=== PATIENT | female | born 1960 | race Caucasian/White ===

== ENCOUNTER 2022-08-27 17:21 | Outpatient (CLI) | payer OTHER, SELFPAY ==
[2022-08-27 17:50] LABS: Basophils Percent Auto 0.1 % (0.2-1.2); Eosinophils Absolute Auto 0.1 K/mm3 (0-0.3); Eosinophils Percent Auto 0.4 % (0-4.4); Hematocrit 35.8 % (37.0-47.0); Hemoglobin 11.8 g/dL (12.0-15.0); Immature Granulocyte Absolute 0.17 K/mm3 (0.00-0.031); Immature Granulocyte Percent A 0.9 % (0-0.5); Lymphocytes Absolute Auto 0.52 K/mm3 (0.9-3.2); Lymphocytes Percent Auto 2.9 % (18.3-44.2); Mean Corpuscular Hemoglobin 29.1 pg (26-34); Mean Corpuscular Volume 88.2 fl (80-100); Mean Platelet Volume 8.8 fl (7.4-10.4); Monocytes Absolute Auto 1.4 K/mm3 (0.1-0.6); Monocytes Percent Auto 7.7 % (2.6-8.5); Platelet Count Result 321 k/mm3 (150-375); Red Blood Count 4.06 M/mm3 (4.2-5.4); White Blood Count 18.2 K/mm3 (4.5-10.0)
[2022-08-27 18:22] LABS: Alanine Aminotransferase 21 U/L (6-35); Albumin Level 2.6 g/dL (3.5-5.1); Alkaline Phosphatase 279 U/L (38-126); Anion Gap 7 mmol/L (8-16); Aspartate Amino Transferase 42 U/L (14-36); Bilirubin,Total 1.2 mg/dL (0.2-1.3); Blood Urea Nitrogen 73 mg/dL (7-17); Calcium 7.7 mg/dL (8.4-10.2); Carbon Dioxide 27 mmol/L (22-30); Chloride 91 mmol/L (98-107); Estimated Glomerular Filt Rate 9; Glucose 93 mg/dL (65-110); Potassium 4.9 mmol/L (3.4-5.0); Sodium 125 mmol/L (137-145)
[2022-09-01 14:46] LABS: CA 19-9 4361 U/mL (<34)
== END 2022-08-27 17:22 | disposition home or self-care (01) ==
PROVIDERS: Visit Provider Internal Medicine Hematology & Oncology
DX: C25.9 Malignant neoplasm of pancreas, unspecified (principal); M79.89 Other specified soft tissue disorders
CPT/HCPCS: 36415; 80053; 85025; 86301

== ENCOUNTER 2022-08-28 10:20 | Observation (INO) | payer OTHER, SELFPAY ==
[2022-08-28] VITALS (15 sets, daily range): BP systolic 90–108; BP diastolic 54–81; PULSE 106–126; RESP 14–20; TEMP 36.2–36.5; O2SAT 95–100; BMI 30.6
--- NOTE | ~2022-08-28 | XR_ITS ---
Clinical Indication: Weakness AP and lateral views of the chest: Comparison: None Findings: Right-sided Mediport in place. Possible lingular airspace opacity present. Right lung clear . Cardiomediastinal silhouette is within normal limits. Bones and soft tissues are unremarkable. Impression: Possible lingular airspace opacity. Correlate for pneumonia or atelectasis. Right-sided Mediport in place. Reviewed, dictated and finalized at location . Impression: Possible lingular airspace opacity. Correlate for pneumonia or atelectasis. Right-sided Mediport in place.
--- NOTE | ~2022-08-28 | CT_ITS ---
EXAMINATION: CT brain wo con DATE: 08/28/2022 18:37 INDICATION: confusion . TECHNIQUE: Computed tomography (CT) of the head was performed without intravenous contrast. The mA wa s adjusted according to patient size. Iterative reconstruction technique was employed. The dose-lengt h product was 605.33 mGy-cm. COMPARISON: None. FINDINGS: No acute intracranial hemorrhage or extra-axial fluid collection. No hydrocephalus, mass, or herniation. No acute ischemic infarct. Unremarkable dural venous sinus attenuation. No acute osseous abnormality. Retention cysts or polyps in the left maxillary sinus, the remaining aerated spaces are clear. Mild atrophy and chronic white matter change. Atherosclerotic intracranial calcification. IMPRESSION: No acute intracranial process. Reviewed, dictated and finalized at location K.
--- NOTE | ~2022-08-28 | US_ITS ---
EXAMINATION: US paracentesis abd w/image DATE: 08/29/2022 14:25 INDICATION: Ascites. TECHNIQUE: The procedure and its risks, benefits, and alternatives were discussed with the patient. P otential risks discussed included bleeding and infection. The skin was prepped and draped in sterile fashion. 1% lidocaine was used for local anesthesia. Under ultrasound guidance, a 5 Fr catheter with trochar was advanced into the ascites in the left lower quadrant. Fluid was aspirated. The catheter w as removed, and a dressing was applied. There were no immediate complications. FINDINGS: Ultrasound images demonstrate ascites and the catheter within the fluid. IMPRESSION: 1. Successful ultrasound-guided paracentesis yielding 4800 mL of yellow fluid. Reviewed, dictated and finalized at location A.
--- NOTE | ~2022-08-28 | US_ITS ---
EXAMINATION: US venous doppler [facility] DATE: 08/28/2022 11:37 INDICATION: Left lower limb swelling TECHNIQUE: Grayscale ultrasound images without and with compression and Doppler ultrasound images of the left lower extremity veins were obtained. COMPARISON: None. FINDINGS: There is occlusive appearing noncompressible deep venous thrombosis in the left femoral vein and left greater saphenous vein outflow tract extending to the left common femoral vein. The visualized porti ons of profunda (deep) femoral vein, popliteal vein and gastrocnemius vein are patent. The left poste rior tibial and peroneal veins at the calf are not clearly visualized. IMPRESSION: 1. Occlusive appearing deep venous thrombosis in the left femoral vein, greater saphenous vein outfl ow and common femoral vein. Dr. Slater discussed these findings with Dr. Quiroz at 11:45 AM. Reviewed, dictated and finalized at location B. IMPRESSION: 1. Occlusive appearing deep venous thrombosis in the left femoral vein, greate r saphenous vein outflow and common femoral vein. Dr. Slater discussed these findings with Dr. Quiroz at 11:45 AM.
--- NOTE | ~2022-08-28 | CT_ITS ---
EXAMINATION: CT abdomen pelvis wo con DATE: 08/28/2022 11:43 INDICATION: Abdominal pain. TECHNIQUE: Computed tomography (CT) of the abdomen and pelvis was performed without intravenous contr ast. Automated exposure control and iterative reconstruction technique were employed. The dose-length product was 964.07 mGy-cm. COMPARISON: None. FINDINGS: The visualized portions of the lung bases demonstrate airspace and groundglass opacities in left lower lobe and lingula, consistent with pneumonia. There is a trace left pleural effusion. The heart size is normal. There are coronary artery calcifications. There is a small pericardial effusion . There is a central venous catheter tip in right atrium. There is moderate intrahepatic biliary duct dilatation. Pneumobilia is noted. There are ill-defined low-attenuation masses in the liver measurin g up to 5.4 cm. There are changes of Whipple procedure and gastric sleeve procedure. The biliary limb is dilated with wall thickening and desiccated enteric contents. The adrenal glands and kidneys are normal. 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 There are no pathologically enlarg ed lymph nodes. There is an anastomosis in the transverse colon. There are no dilated loops of bowel. The appendix is normal. There is a large volume of ascites. There is fluid in the esophagus. Body wa ll edema is noted. There is severe thoracic and lumbar spondylosis. IMPRESSION: 1. Pneumonia involving left lower lobe and lingula. 2. Small pericardial effusion. 3. Liver masses, consistent with metastatic disease. 4. Large volume of ascites. 5. Dilated biliary limb with wall thickening and desiccated enteric contents, consistent with enterit is and adynamic ileus. Reviewed, dictated and finalized at location A. IMPRESSION: 1. Pneumonia involving left lower lobe and lingula. 2. Small pericardial effusion. 3. Liver masses, consistent with metastatic disease. 4. Large volume of ascites. 5. Dilated biliary limb with wall thickening and desiccated enteric contents, c onsistent with enteritis and adynamic ileus.
--- NOTE | 2022-08-28 10:36 | ECG_ITS ---
Measurements Intervals [place] Rate: 113 P: 16 TN: 120 QRS: -25 QRSD: 82 T: 31 QT: 345 QTc: 474 Interpretive Statements SINUS TACHYCARDIA LOW QRS VOLTAGE IN PRECORDIAL LEADS ANTEROSEPTAL INFARCT, AGE INDETERMINATE BORDERLINE T WAVE ABNORMALITY- DIFFUSE LEADS ABNORMAL ECG NO PREVIOUS ECG AVAILABLE FOR COMPARISON Electronically Signed On 08-28-2022 11:11:25 CDT by Aston Pollack D.O.
[2022-08-28 10:57] LABS: Basophils Percent Auto 0.1 % (0.2-1.2); Eosinophils Percent Auto 0.3 % (0-4.4); Hemoglobin 11.8 g/dL (12.0-15.0); Immature Granulocyte Absolute 0.12 K/mm3 (0.00-0.031); Immature Granulocyte Percent A 0.8 % (0-0.5); Lymphocytes Absolute Auto 0.36 K/mm3 (0.9-3.2); Lymphocytes Percent Auto 2.3 % (18.3-44.2); Mean Corpuscular HGB Conc 32.8 g/dl (32-36); Mean Corpuscular Hemoglobin 28.8 pg (26-34); Mean Corpuscular Volume 87.8 fl (80-100); Mean Platelet Volume 9.2 fl (7.4-10.4); Monocytes Absolute Auto 1.1 K/mm3 (0.1-0.6); Monocytes Percent Auto 6.9 % (2.6-8.5); Neutrophils Absolute Auto 14.1 K/mm3 (1.3-6.7); Neutrophils Percent Auto 89.6 % (45.5-73.1); Platelet Count Result 284 k/mm3 (150-375); Red Cell Distribution Width 15.1 % (11.5-14.5); White Blood Count 15.7 K/mm3 (4.5-10.0)
[2022-08-28 11:22] LABS: Alanine Aminotransferase 24 U/L (6-35); Albumin Level 2.5 g/dL (3.5-5.1); Alkaline Phosphatase 345 U/L (38-126); Anion Gap 7 mmol/L (8-16); Aspartate Amino Transferase 44 U/L (14-36); Bilirubin,Total 1.2 mg/dL (0.2-1.3); Blood Urea Nitrogen 77 mg/dL (7-17); Calcium 7.5 mg/dL (8.4-10.2); Carbon Dioxide 28 mmol/L (22-30); Chloride 89 mmol/L (98-107); Glucose 89 mg/dL (65-110); Potassium 4.9 mmol/L (3.4-5.0); Sodium 124 mmol/L (137-145)
[2022-08-28 11:24] LABS: Estimated CRCL calculation 10 ml/min; Estimated Glomerular Filt Rate 9
[2022-08-28 11:50] LABS: Appearance Urine Turbid (Clear); Bacteria Urine 1+ /hpf; Bilirubin Urine Negative (Negative); Blood Urine 1+ (Negative); Color Urine Dark Yellow (Yellow); Glucose Urine UA Negative (Negative); Ketones Urine Negative (Negative); Leukocyte Esterase Ur 3+ LEU/UL (Negative); Nitrate Urine Negative (Negative); Non Pathogenic Casts >20; Protein Urine 1+ mg/dL (Negative); Specific Grav Ur 1.016 (1.001-1.035); Squamous Epithelial Cell Urine Many /hpf (Few); Transitional Epi Cells Urine Present /hpf (None Seen); WBC Urine >100 /hpf
[2022-08-28] MEDS: SODIUM CHLORIDE 0.9% IV 1,000 ML 999 ML IV CONT (11:52)
[2022-08-28 11:55] LABS: Add Urine Microscopic? YES
[2022-08-28 12:12] LABS: Ammonia < 9 umol/L (9-30)
[2022-08-28 12:16] LABS: INR 1.2; Prothrombin Time 16.2 Seconds (11.1-14.7)
[2022-08-28 12:17] LABS: Partial Thromboplastin Time 32.7 SECONDS (22.3-36.8)
--- NOTE | 2022-08-28 12:41 | ED.WEAKNESS ---
HPI - Weakness General Chief complaint: Weakness Stated complaint: low bp/weakness/n/v Time Seen by Provider: 08/28/22 10:31 History of Present Illness HPI Narrative: Patient is a 61-year-old female who presents ER with weakness and low blood pressure. Patient unable to get up and walk today. She just moved here 5 days ago from [place]. There she was being worked up for pancreatic cancer with metastases. Originally diagnosed 01/2022. She has had a Whipple surgery as well as a pancreatic stent. She is developed renal failure and cannot receive any additional chemotherapy or radiation. She also did not tolerate those therapies prior when she had them. Last treatment was 8 weeks ago. She had outpatient lab work couple days ago but they do not know the result. Patient and family are hopeful there is something additional we can provide them. Patient has history of ascites requiring paracentesis. Patient has not been able to eat or drink due to nausea and feeling of fullness. Additionally patient has recent new edema to the left lower extremity. Related Data Home Medications Medication Instructions Recorded Confirmed albuterol sulfate 90 mcg/actuation 1 inh inhalation QID PRN sob 08/28/22 08/28/22 aerosol inhaler chlorpromazine 25 mg tablet 25 mg PO TID 08/28/22 08/28/22 dronabinol 5 mg capsule 5 mg PO BID 08/28/22 08/28/22 escitalopram oxalate 20 mg tablet 20 mg PO DAILY 08/28/22 08/28/22 hydrocodone-acetaminophen 1 tab-cap PO QID PRN Pain, Moderate 08/28/22 08/28/22 hydromorphone 2 mg tablet 4 mg PO Q6H PRN Pain 08/28/22 08/28/22 mjjiit-zniyfnbf-pvctyin 1 cap PO TIDWM 08/28/22 08/28/22 12,000-38,000-60,000 unit capsule,delayed rel (Creon) multivitamin with minerals 1 tablet PO DAILY 08/28/22 08/28/22 naloxone 4 mg/actuation nasal spray 1 spray intranasal 4-12XD PRN 08/28/22 08/28/22 Sedation ondansetron HCl 8 mg tablet 8 mg PO Q8H PRN Nausea 08/28/22 08/28/22 pantoprazole 40 mg tablet,delayed 40 mg PO DAILY 08/28/22 08/28/22 release (Protonix) promethazine 25 mg tablet 25 mg PO Q6H 08/28/22 08/28/22 Allergies Allergy/AdvReac Type Severity Reaction Status Date / Time No Known Allergies Allergy Verified 08/28/22 10:38 Review of Systems Review of Systems: All systems reviewed & are unremarkable except as noted in HPI and below Constitutional: Constitutional: Denies chills, Reports fatigue, Denies fever(s) and Reports weakness ENT: Denies nasal congestion and Denies sore throat Cardiovascular: Cardiovascular: Denies chest pain and Denies rapid heart rate Respiratory: Respiratory: Denies cough and Denies dyspnea Gastrointestinal: Gastrointestinal: Reports abdominal pain, Reports bloating, Reports nausea and Reports vomiting Musculoskeletal: Musculoskeletal: Denies myalgias and Denies arthralgias Neurologic: Denies headache(s), Denies focal weakness and Denies numbness PMFSH Past Medical History Medical History (Updated 08/28/22 @ 15:14 by Poornima Belcher PA-C) Pancreatic cancer Surgical History Surgical History (Updated 08/28/22 @ 19:02 by Arley Quiroz MD) H/O Whipple procedure Social History Social History Smoking status: Never smoker Alcohol intake: never Substance use: never Lack of Transportation: No Lack of Food: Never True Current Housing: I Have Housing Concerned About Future Housing: No Difficulty Paying Gas/Electric Bills: No Difficulty Paying for Meds: No Currently Unemployed: No Education: Associate Degree Difficulty w/ Childcare or Family Care: No Spiritual care concerns: No Exam Narrative: GENERAL: Chronically ill-appearing, well-nourished, and in no acute distress. HEAD: Normocephalic, atraumatic. EYES: PERRL and EOMI. ENT: Mucous membranes moist. CHEST: Clear to auscultation. No respiratory distress. HEART: Regular rate and rhythm. Normal peripheral pulses. ABDOMEN: Soft, diffusely tender and distended abdomen, normal
[2022-08-28] MEDS: HEPARIN SODIUM 5,000 UNITS/ML VIAL 4500 UNITS IV PUSH (13:57)
[2022-08-28] MEDS: HEPARIN SOD/D5W 100 UNITS/ML 25,000 UNITS/250 ML BAG 11 UNITS IV CONT (13:57)
[2022-08-28] MEDS: ONDANSETRON INJ 4 MG/2 ML VIAL IV PUSH (14:49)
--- NOTE | 2022-08-28 14:58 | PC.NURSE ---
This patient, Glenis Bustillo, was admitted to IMU Room 212-1 at 1445 from the ED with family at bedside pt was given Zofran upon arrival to room was having N/V. Patient/family oriented to hospital policies and general routines including ID bracelet, bed and alarms, visiting hours, pain management, procedures, bathroom and other care routines, personal items, smoking policy, room service/diet, and visiting hours. Information on how to activate the Rapid Response Team has been discussed. Patient/Family are encouraged to report perceived risks to care and to ask questions if they do not understand what they are told or what they should do.
--- NOTE | 2022-08-28 15:08 | PM.IMHP ---
H&P: HPI History of Present Illness Date/Time: 08/28/22 15:30 Chief Complaint: Weakness. Narrative: This is a 61-year-old female with pancreatic cancer, hypertension, and type 2 diabetes who presented to the emergency department via EMS for evaluation of weakness. The patient provides the following history and sisters at bedside provide additional information, with the patient's permission. She was diagnosed with pancreatic cancer in January 2022 and had a Whipple procedure done several weeks after diagnosis at an academic center in [place]. She had neoadjuvant radiation and was started on chemotherapy however she has had a rough go with that and she has not had any chemotherapy treatments for the last 8 weeks or so. She has become increasingly weak and requiring more care than her can provide at this time due to his job and she flew here last Wednesday to stay with her sisters who will be helping care for her. A couple of weeks prior to her coming here she was hospitalized with a UTI, pneumonia, and an acute kidney injury. She was aggressively hydrated and reportedly held onto a lot of fluid. Since that time she has had paracentesis x2 with the last being about a week ago. In any event, she has been exhausted since her plane trip on Wednesday. She has been getting around with a walker but her sisters have noticed that she is increasingly weak and has been getting up less. She has not been eating or drinking much and in fact she has had severe nausea and multiple episodes of emesis over the past 2 days. She had some ice chips and a small amount of water when I was in the room and it came up quite quickly. The decision was made to bring her in today as she has started to exhibit some change in mental status with increasing lethargy and slowness to respond. At the time my evaluation she is alert and oriented. She processes questions well but answers them slowly. She complains of pain diffusely throughout the abdomen related to the swelling and the nausea. She is unable to say whether not she has had any urinary symptoms. She denies fever, chills, sweats, headache, vertigo, chest pain, pleuritic pain, shortness a breath, diarrhea, and dysuria. In the ED: She was afebrile on arrival. Blood pressure was as low as 91/57 but has responded to IV fluids. She has been persistently tachycardic in the one teens. Pertinent labs included WBC count of 15.7, hemoglobin 11.8, sodium 124, potassium 4.9, chloride 89, BUN 77, creatinine 5.00, calcium 7.5, AST 44, ALT 345, ammonia less than 9, CK 34, total protein 6.0, albumin 2.5. Urine showed 1+ protein, 1+ blood, 3+ leukocyte esterase, 3 to 5 RBC, greater than 100 WBC, 1+ bacteria, many squamous cells, greater than 20 casts. Chest x-ray showed possible lingular airspace opacity. CT of the abdomen and pelvis showed pneumonia involving the left lower lobe and lingula, small pericardial effusion, liver masses consistent with metastatic disease, large volume of ascites, and dilated biliary limb with wall thickening and desiccated enteric contact consistent with enteritis and adynamic ileus left leg venous Doppler ultrasound showed an occlusive appearing DVT in left femoral vein, greater saphenous vein outflow, and common femoral vein. She received a L of normal saline, was started on a heparin drip for the DVT, and was given doses of azithromycin and ceftriaxone for pneumonia. She has been admitted in this setting for further treatment and observation. Review of Systems Review of Systems: Twelve systems were reviewed and are negative except for as per HPI. [facility] [place] [place] Past Medical History Medical History (Updated 08/28/22 @ 21:28 by Poornima Belcher PA-C) History of biliary stent insertion Hypertension Pancreatic cancer Type 2 diabetes mellitus Surgical History Surgical History (Updated 08/28/22 @ 21:24 by Poornima Belcher PA-C) History of arthroplasty of left knee History of partial colectomy Related to complications
--- NOTE | 2022-08-28 15:29 | PC.NURSE ---
This patient, Glenis Bustillo, was admitted to IMU Room 212-01. Patient/family oriented to hospital policies and general routines including ID bracelet, bed and alarms, visiting hours, pain management, procedures, bathroom and other care routines, personal items, smoking policy, room service/diet, and visiting hours. Information on how to activate the Rapid Response Team has been discussed. Patient/Family are encouraged to report perceived risks to care and to ask questions if they do not understand what they are told or what they should do.
[2022-08-28 16:51] LABS: NT Pro B Type Natriuretic Pept 3710 pg/mL (19.9-100); Troponin I 0.014 ng/mL (0.000-0.034)
[2022-08-28 18:02] LABS: Creatinine Urine 113.1 mg/dL; Urea Random Urine 549 MG/DL
[2022-08-28] MEDS: SODIUM CHLORIDE 0.9% IV 1,000 ML 75 ML IV CONT (18:26)
[2022-08-28 18:38] LABS: Anion Gap 11 mmol/L (8-16); Blood Urea Nitrogen 78 mg/dL (7-17); Calcium 7.7 mg/dL (8.4-10.2); Carbon Dioxide 20 mmol/L (22-30); Chloride 100 mmol/L (98-107); Glucose 110 mg/dL (65-110); Potassium 5.5 mmol/L (3.4-5.0); Sodium 131 mmol/L (137-145)
[2022-08-28] MEDS: HYDROmorphone HCL INJ (*CRX) 1 MG/ML SYR 0.5 MG IV PUSH (18:53)
[2022-08-28 19:07] LABS: Partial Thromboplastin Time > 200.0 SECONDS (22.3-36.8)
[2022-08-28 19:17] LABS: Estimated CRCL calculation 9 ml/min; Estimated Glomerular Filt Rate 8
[2022-08-28 20:00] LABS: Sodium Urine Random < 5 meq/L
[2022-08-28 20:04] LABS: Creatine Kinase 34 U/L (30-135)
[2022-08-28 20:05] LABS: Anion Gap 9 mmol/L (8-16); Blood Urea Nitrogen 76 mg/dL (7-17); Calcium 7.4 mg/dL (8.4-10.2); Carbon Dioxide 24 mmol/L (22-30); Chloride 95 mmol/L (98-107); Glucose 100 mg/dL (65-110); Sodium 128 mmol/L (137-145)
[2022-08-28] MEDS: HYDROmorphone HCL INJ (*CRX) 1 MG/ML SYR IV PUSH (21:33)
[2022-08-28 22:45] LABS: Free T4 Free Thyroxine Reflex 2.93 ng/dL (0.78-2.19)
[2022-08-29] VITALS (9 sets, daily range): BP systolic 96–114; BP diastolic 57–69; PULSE 102–113; RESP 14–18; TEMP 36.3–37.1; O2SAT 96–99
[2022-08-29 03:15] LABS: Basophils Percent Auto 0.2 % (0.2-1.2); Eosinophils Absolute Auto 0.1 K/mm3 (0-0.3); Eosinophils Percent Auto 0.6 % (0-4.4); Hematocrit 29.9 % (37.0-47.0); Hemoglobin 10.2 g/dL (12.0-15.0); Immature Granulocyte Absolute 0.17 K/mm3 (0.00-0.031); Immature Granulocyte Percent A 0.9 % (0-0.5); Lymphocytes Absolute Auto 0.53 K/mm3 (0.9-3.2); Lymphocytes Percent Auto 2.8 % (18.3-44.2); Mean Corpuscular HGB Conc 34.1 g/dl (32-36); Mean Corpuscular Hemoglobin 29.8 pg (26-34); Mean Corpuscular Volume 87.4 fl (80-100); Mean Platelet Volume 9.5 fl (7.4-10.4); Monocytes Absolute Auto 1.4 K/mm3 (0.1-0.6); Monocytes Percent Auto 7.5 % (2.6-8.5); Neutrophils Absolute Auto 16.4 K/mm3 (1.3-6.7); Platelet Count Result 255 k/mm3 (150-375); Red Blood Count 3.42 M/mm3 (4.2-5.4); Red Cell Distribution Width 15.2 % (11.5-14.5); White Blood Count 18.7 K/mm3 (4.5-10.0)
[2022-08-29 03:23] LABS: Potassium 4.8 mmol/L (3.4-5.0)
[2022-08-29 03:41] LABS: Alanine Aminotransferase 22 U/L (6-35); Alkaline Phosphatase 330 U/L (38-126); Anion Gap 9 mmol/L (8-16); Aspartate Amino Transferase 39 U/L (14-36); Blood Urea Nitrogen 73 mg/dL (7-17); Calcium 6.6 mg/dL (8.4-10.2); Carbon Dioxide 21 mmol/L (22-30); Chloride 92 mmol/L (98-107); Estimated CRCL calculation 10 ml/min; Estimated Glomerular Filt Rate 9; Glucose 82 mg/dL (65-110); Magnesium 1.8 mg/dL (1.6-2.3); Sodium 122 mmol/L (137-145)
[2022-08-29] MEDS: HYDROmorphone HCL INJ (*CRX) 1 MG/ML SYR 0.5 MG IV PUSH ×2 (03:50→11:25)
[2022-08-29] MEDS: ONDANSETRON INJ 4 MG/2 ML VIAL IV PUSH ×2 (03:50→14:34)
[2022-08-29 08:07] LABS: Glucose Point of Care 75 mg/dl (65-105)
[2022-08-29] MEDS: SODIUM CHLORIDE 0.9% IV 1,000 ML 75 ML IV CONT (08:32)
[2022-08-29] MEDS: PANTOPRAZOLE SODIUM IV 40 MG VIAL IV PUSH (08:32)
[2022-08-29 12:08] LABS: Partial Thromboplastin Time 108.9 SECONDS (22.3-36.8)
--- NOTE | 2022-08-29 12:25 | PM.IMPN ---
Progress Note: A&P Assessment and Plan (1) Pneumonia involving left lung: Code(s): J18.9 - Pneumonia, unspecified organism Status: Acute Assessment and Plan: Continue azithromycin and ceftriaxone. Attempt sputum for culture. Check urinary antigens and mycoplasma IgM. Will continue treatment for now, patient will likely may be made hospice. (2) Acute kidney injury: Code(s): N17.9 - Acute kidney failure, unspecified Status: Acute Assessment and Plan: Monitor (3) Deep vein thrombosis of left lower extremity: Code(s): I82.402 - Acute embolism and thrombosis of unspecified deep veins of left lower extremity Status: Acute Assessment and Plan: Heparin drip for now. If patient decides to be made hospice which she is leaning towards, heparin can be stopped. (4) Ascites: Code(s): R18.8 - Other ascites Status: Acute Assessment and Plan: Will perform therapeutic paracentesis (5) Hyponatremia: Code(s): E87.1 - Hypo-osmolality and hyponatremia Status: Acute Assessment and Plan: Monitor for now (6) Abnormal urinalysis: Code(s): R82.90 - Unspecified abnormal findings in urine Status: Acute Assessment and Plan: Antibiotics on board. If patient has made hospice we can DC antibiotics. (7) Pancreatic cancer: Code(s): C25.9 - Malignant neoplasm of pancreas, unspecified Status: Acute Assessment and Plan: Patient having significant pain and poor prognosis overall. She wants to be made hospice. Hospice consult entered. (8) Tachycardia: Code(s): R00.0 - Tachycardia, unspecified Status: Acute Assessment and Plan: Monitor (9) Metabolic encephalopathy: Code(s): G93.41 - Metabolic encephalopathy Status: Acute Assessment and Plan: Secondary to above (10) Adynamic ileus: Code(s): K56.0 - Paralytic ileus Status: Acute Assessment and Plan: Monitor, patient wants to eat and will likely be made hospice. Subjective Date/time seen: 08/29/22 12:25 Interval history: No new complaints Exam Narrative: General: Ill-appearing female in the semi-Aiken position. Weight: 73.5 kg. BMI: 30.6. HEENT: Normocephalic, atraumatic. PERRL, EOMI. Sclera anicteric. Dry mucous membranes. Neck: Supple. Trachea midline. No lymphadenopathy. Respiratory: Respirations are nonlabored. Faint crackles at the left base. Cardiovascular: Tachycardic with normal S1-S2. Gastrointestinal: Abdomen is slightly firm and distended with shifting fluid wave. She has mild tenderness to palpation diffusely throughout the abdomen without voluntary guarding or rebound tenderness. Skin: Warm and dry. Generalized pallor. Extremities: No cyanosis or clubbing. Significant pitting edema of the left lower leg. Peripheral pulses intact. Neurological: Alert and oriented x4. Cranial nerves 2-12 are grossly intact. Speech is clear but slow. No facial asymmetry. Diffuse generalized weakness without focal findings. Psychiatric: Cooperative. Lethargic. Flat affect. Objective Data Vital Signs Vital Signs: Vital Signs - 24 hr 08/28/22 13:45 08/28/22 13:38 08/28/22 13:45 Temperature Pulse Rate 115 H 120 H 115 H Respiratory Rate 16 14 14 Blood Pressure 90/67 L Pulse Oximetry 97 96 Oxygen Delivery 08/28/22 14:00 08/28/22 14:01 08/28/22 14:52 Temperature 97.1 F L Pulse Rate 117 H 118 H 119 H Respiratory Rate 16 15 20 Blood Pressure 92/60 L 91/57 L Pulse Oximetry 96 95 97 Oxygen Delivery 08/28/22 16:00 08/28/22 18:00 08/28/22 16:00 Temperature Pulse Rate 126 H 112 H Respiratory Rate Blood Pressure Pulse Oximetry Oxygen Delivery Room Air 08/28/22 17:37 08/28/22 20:00 08/28/22 23:05 Temperature 97.2 F L 97.7 F 97.7 F Pulse Rate 115 H 106 H 110 H Respiratory Rate 18 16 16 Blood Pressure 108/81 107/73 93/
[2022-08-29] MEDS: PROMETHAZINE HCL 25 MG TABLET PO (14:34)
[2022-08-29] MEDS: HYDROmorphone HCL (*CRX) 2 MG TABLET 4 MG PO (14:34)
[2022-08-29] MEDS: PROMETHAZINE HCL 25 MG/ML AMPUL 12.5 MG IV PUSH (17:16)
[2022-08-29] MEDS: HYDROmorphone HCL INJ (*CRX) 1 MG/ML SYR 2 MG IV PUSH (17:17)
--- NOTE | 2022-08-29 19:33 | PC.NURSE ---
called MD downs for pt heparin drip management
[2022-08-29 20:47] LABS: Partial Thromboplastin Time 59.1 SECONDS (22.3-36.8)
[2022-08-29] MEDS: HEPARIN SODIUM 5,000 UNITS/ML VIAL 2500 UNITS IV PUSH (21:17)
--- NOTE | 2022-08-29 21:21 | PC.NURSE ---
ptt low 59 increased by 1ml/hr and bolus 2500 u heparin IV push, next ptt 321 am 08/30/22
[2022-08-30] MEDS: HYDROmorphone HCL INJ (*CRX) 1 MG/ML SYR IV PUSH ×2 (00:05→05:32)
[2022-08-30] MEDS: SODIUM CHLORIDE 0.9% IV 1,000 ML 75 ML IV CONT (00:53)
[2022-08-30 03:54] LABS: Partial Thromboplastin Time 148.8 SECONDS (22.3-36.8)
--- NOTE | 2022-08-30 04:03 | PC.NURSE ---
148.8 PTT holding x1 hour then decrease by 2 ml/hr
--- NOTE | 2022-08-30 04:06 | PC.NURSE ---
next ptt at 10 am today, will restart at 5am at 6m/hr heparin drip
[2022-08-30] MEDS: ONDANSETRON INJ 4 MG/2 ML VIAL IV PUSH (05:32)
[2022-08-30 06:00] VITALS: BP 97/59; PULSE 111; RESP 16; TEMP 37.1; O2SAT 98
[2022-08-30 08:00] VITALS: BP 97/66; PULSE 104; RESP 12; TEMP 36.3; O2SAT 98
[2022-08-30] MEDS: HYDROmorphone HCL INJ (*CRX) 1 MG/ML SYR 2 MG IV PUSH (09:51)
[2022-08-30] MEDS: PROMETHAZINE HCL 25 MG/ML AMPUL 12.5 MG IV PUSH (09:55)
[2022-08-30 09:58] VITALS: BP 97/70; PULSE 110
[2022-08-30 10:49] LABS: Partial Thromboplastin Time 56.3 SECONDS (22.3-36.8)
[2022-08-30] MEDS: HEPARIN SODIUM 5,000 UNITS/ML VIAL 2500 UNITS IV PUSH (10:58)
--- NOTE | 2022-08-30 11:37 | PM.DS ---
DS: Admitting Diagnosis Discharge Date August 30, 2022 Admitting Diagnosis Pancreatic cancer DS: Discharge Diagnosis Discharge Diagnosis (1) Pneumonia involving left lung: Code(s): J18.9 - Pneumonia, unspecified organism Status: Acute Assessment and Plan: Continue azithromycin and ceftriaxone. Attempt sputum for culture. Check urinary antigens and mycoplasma IgM. (2) Acute kidney injury: Code(s): N17.9 - Acute kidney failure, unspecified Status: Acute Assessment and Plan: Exact etiology is not entirely clear. She may very well have some form of chronic kidney disease as her siblings report that her creatinine was around 3 on discharge from the hospital last month. She looks profoundly dry on exam and will be judiciously hydrated with close monitoring of volume status. Avoid nephrotoxic agents. She does not appear to be retaining urine by CT. (3) Deep vein thrombosis of left lower extremity: Code(s): I82.402 - Acute embolism and thrombosis of unspecified deep veins of left lower extremity Status: Acute Assessment and Plan: Likely a due to underlying malignancy and possible recent plane drip. She has been started on a heparin drip. Pulmonary embolism is a possibility given her persistent tachycardia although she unable to have a chest CTA due to her renal function and I do not think she would tolerate a V/Q scan at this time. (4) Ascites: Code(s): R18.8 - Other ascites Status: Acute Assessment and Plan: She has reaccumulation of ascites. Hopefully she will be able to have a therapeutic thoracentesis in the next couple of days though will hold on scheduling that for now as she is currently on a heparin drip and she should probably be on that for at least today before turning it off for a period of time for the procedure. (5) Hyponatremia: Code(s): E87.1 - Hypo-osmolality and hyponatremia Status: Acute Assessment and Plan: Likely due to profound dehydration. Continue judicious IV fluid rehydration with normal saline with frequent monitoring of sodium. Urine and serum osmolalities, urine sodium, and TSH pending for further evaluation. (6) Abnormal urinalysis: Code(s): R82.90 - Unspecified abnormal findings in urine Status: Acute Assessment and Plan: She does not really have symptoms to suggest active UTI and the UA looks contaminated. She is currently on ceftriaxone for her pneumonia which should cover any urinary pathogens. Urine culture pending. (7) Pancreatic cancer: Code(s): C25.9 - Malignant neoplasm of pancreas, unspecified Status: Acute Assessment and Plan: She has stage IV pancreatic cancer with evidence of liver metastases. Whipple procedure was done last February and she had neoadjuvant chemoradiation though she has not been able to tolerate any further chemotherapy over the last 8 weeks. I had a long conversation with the patient and her sisters at bedside and recommended that they speak with each other and the patient's and children regarding her goals for therapy. As she has not been able to tolerate chemotherapy, palliative care/hospice may be appropriate. (8) Tachycardia: Code(s): R00.0 - Tachycardia, unspecified Status: Acute Assessment and Plan: May very well be due to dehydration though pulmonary embolism is a consideration given her extensive left leg DVT. As above she is not able to receive IV contrast given her renal function and I do not think she would tolerate a V/Q scan at this time. She has a small pericardial effusion on imaging though clinically she does not have cardiac tamponade. Echocardiogram and TSH ordered for further evaluation. (9) Metabolic encephalopathy: Code(s): G93.41 - Metabolic encephalopathy Status: Acute Assessment and Plan: The patient is lethargic and slow to respond though she is alert and oriented
== END 2022-08-30 13:29 | disposition hospice, home (50) ==
LOC: ANHED 12:50 → ANH3MEDSUR 08-30 11:36 → ANHIMU 08-31 14:37
PROVIDERS: Internal Medicine; Physician Assistant; Admitting Provider Internal Medicine; Emergency Provider Emergency Medicine; Visit Provider Chiropractor
DX: J18.9 Pneumonia, unspecified organism (principal); N17.9 Acute kidney failure, unspecified; R53.1 Weakness; I82.412 Acute embolism and thrombosis of left femoral vein; R18.8 Other ascites; E87.1 Hypo-osmolality and hyponatremia; R82.90 Unspecified abnormal findings in urine; C25.9 Malignant neoplasm of pancreas, unspecified; R00.0 Tachycardia, unspecified; R41.0 Disorientation, unspecified; G93.41 Metabolic encephalopathy; K56.0 Paralytic ileus; R53.83 Other fatigue; I10 Essential (primary) hypertension; E11.9 Type 2 diabetes mellitus without complications; I31.39 Other pericardial effusion (noninflammatory); R16.0 Hepatomegaly, not elsewhere classified; R79.89 Other specified abnormal findings of blood chemistry; D64.9 Anemia, unspecified; D72.829 Elevated white blood cell count, unspecified; R94.31 Abnormal electrocardiogram [ECG] [EKG]; Z79.51 Long term (current) use of inhaled steroids; Z79.891 Long term (current) use of opiate analgesic; Z79.899 Other long term (current) drug therapy
CPT/HCPCS: 36415; 49083; 70450; 71046; 74176; 80048; 80053; 81001; 82140; 82550; 82570; 82948; 83605; 83735; 83880; 83930; 83935; 84300; 84439; 84443; 84484; 84540; 85025; 85610; 85730; 87040; 87086; 87147; 87181; 87186; 93005; 93971; 96361; 96365; 96366; 96367; 96375; 96376; 99285; A9270; C9113; G0378; J0131; J0456; J0696; J1170; J1644; J2405; J2550; J7030